=== PATIENT | male | born 1970 | race Caucasian/White ===

== ENCOUNTER → 2017-04-01 | Outpatient (CLI) | payer BC ==
--- NOTE | 2017-04-01 18:13 | Diagnostic Imaging Report ---
PROCEDURE: CT ABDOMEN AND PELVIS WITHOUT CONTRAST TECHNIQUE: The abdomen and pelvis were scanned utilizing a multidetector helical scanner from the diaphragm to the lesser trochanter after the oral administration of Redicat. No IV contrast was administered because of allergy to iodine. Coronal and sagittal multiplanar reformations were obtained. COMPARISON: [facility], US, US ABDOMEN COMPLETE, 12/13/2011, 17:17. INDICATIONS: LEFT LOWER QUAD, DIVERTICULITIS FINDINGS: ABSENCE OF INTRAVENOUS CONTRAST DECREASES SENSITIVITY FOR DETECTION OF FOCAL LESIONS AND VASCULAR PATHOLOGY. LOWER THORAX: Unremarkable HEPATOBILIARY: 5 mm hypodense lesions in hepatic segment II (series 2, images 8 and 10), which are too small to characterize, but likely represent small cysts. No intra-or extrahepatic biliary ductal dilation. Gallbladder is unremarkable. SPLEEN: No splenomegaly. PANCREAS: No focal masses or ductal dilatation. ADRENALS: No adrenal nodules. KIDNEYS/URETERS: No hydronephrosis, stones, or solid mass lesions. PELVIC ORGANS/BLADDER: Bladder is unremarkable. No focal lesions. PERITONEUM / RETROPERITONEUM: No free air or fluid. LYMPH NODES: No lymphadenopathy. VESSELS: Unremarkable for noncontrast exam. GI TRACT: No bowel dilation or evidence of obstruction. Short appendix versus appendiceal stump is unremarkable. A few scattered diverticula are noted in the distal descending and proximal sigmoid colon, without surrounding inflammatory changes to suggest diverticulitis. BONES AND SOFT TISSUES: No aggressive lytic lesion. Soft tissues are grossly unremarkable. IMPRESSION: 1. descending and sigmoid colon mild diverticulosis, without diverticulitis. The bowel is otherwise unremarkable. 2. No acute abdominopelvic abnormalities. Specifically, no acute abnormal findings in the left lower quadrant to explain the patient's pain. Lee Weller M.D. Dictated by: Lee Weller M.D. on 04/01/2017 at 18:22 Electronically approved by: Lee Weller M.D. on 04/01/2017 at 18:22
== END ==
LOC: CT 17:32
PROVIDERS: ATTEND Internal Medicine Gastroenterology
DX: R10.9 Unspecified abdominal pain (principal)
CPT/HCPCS: 74176